=== PATIENT | male | born 1935 | race Caucasian/White ===

== ENCOUNTER 2018-04-15 22:59 | Emergency (ER) | payer OTHER, MEDICARE ==
[~2018-04-15] VITALS: Ht 180.3 cm; Wt 77.1 kg
--- NOTE | ~2018-04-15 | EKG ---
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
--- NOTE | ~2018-04-15 | EKG ---
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
[~2018-04-15 22:59] MED LIST: ACETAMINOPHEN-1 EAC1 PO; AMBEREN; ASPIRIN EC81 M1 PO; CIPROFLOXACIN500 M1 PO; FISH OIL 1,0001 EAC5 PO; FLOMAX; FLONASE 0.05%50 MCG NASAL; HYDROCODON-ACE1 EAC7 PO; LISINOPRIL10 MG PO; MECLIZINE HCL12.5 MG PO; METHOCARBAMOL500 M2 PO; MULTI-VITAMIN1 EAC5 PO; NORCO 5-325 TA1 EACH PO; PREDNISONE 20 M20 MG PO; SIMVASTATIN20 MG PO; SIMVASTATIN40 MG PO; TAMSULOSIN HCL0.4 MG PO; VITAMIN B-12500 MCG PO; VITAMIN C + RO500 MG PO; VITAMIN D-32000 UNIT PO; VITAMIN D400 UNI1
[2018-04-15 23:00] VITALS: BP 126/69
[2018-04-15 23:16] LABS: ABSOLUTE NEUTROPHILS 3.1 thou/uL (1.4-8.2); BASOPHILS 0.9 % (0.0-2.0); EOSINOPHILS 5.6 % (0.0-3.0); HEMOGLOBIN 14.7 gm/dL (14.0-18.0); MCH 33.5 pg (26.0-34.0); MCV 95.8 fL (80.0-100.0); PLATELET COUNT 205 thou/uL (150-400); POLYS 44.5 % (36.0-66.0); RBC 4.38 mil/uL (4.50-6.00); RDW 12.5 % (10.5-14.5); WBC 6.9 thou/uL (4.0-11.0)
[2018-04-15 23:25] LABS: ANION GAP 7 mmol/L (7-16); BUN 23 mg/dL (7-18); CALCIUM 9.3 mg/dL (8.5-10.1); CHLORIDE 106 mmol/L (98-107); CO2 29 mmol/L (21-32); CREATININE 1.3 mg/dL (0.7-1.3); GLUCOSE 111 mg/dL (74-106); POTASSIUM 4.1 mmol/L (3.5-5.1); SODIUM 142 mmol/L (136-145)
[2018-04-15 23:35] LABS: TROPONIN-I <0.06 ng/mL (<0.06)
[2018-04-16 03:10] VITALS: BP 144/54
== END 2018-04-16 03:11 | disposition home or self-care (01) ==
LOC: ER 22:59 → EROBS 04-16 01:08
PROVIDERS: Emergency Medicine
DX: R07.89 Other chest pain (principal); R11.0 Nausea; I10 Essential (primary) hypertension; E78.00 Pure hypercholesterolemia, unspecified; Z90.49 Acquired absence of other specified parts of digestive tract; Z85.038 Personal history of other malignant neoplasm of large intestine

== ENCOUNTER 2018-06-26 04:14 | Emergency (ER) | payer OTHER, MEDICARE ==
[~2018-06-26] VITALS: Ht 177.8 cm; Wt 72.6 kg
--- NOTE | ~2018-06-26 | EKG ---
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
[2018-06-26] MEDS ORDERED: COLESTIPOL HCL1 G1 PO (04:22)
[2018-06-26] MEDS ORDERED: TRAMADOL 50 MG50 MG PO (05:03)
[2018-06-26] MEDS ORDERED: NORFLEX100 MG PO (05:03)
[2018-06-26 06:36] LABS: CALCIUM 8.9 mg/dL (8.5-10.1); POTASSIUM 3.8 mmol/L (3.5-5.1)
[2018-06-26 06:45] LABS: TROPONIN-I 0.06 ng/mL (<0.06)
[2018-06-26 07:06] VITALS: BP 147/57
== END 2018-06-26 07:06 | disposition home or self-care (01) ==
LOC: ER 04:14
PROVIDERS: Emergency Medicine
DX: R20.2 Paresthesia of skin (principal); M43.6 Torticollis; R42 Dizziness and giddiness; I10 Essential (primary) hypertension; Z85.038 Personal history of other malignant neoplasm of large intestine; Z90.49 Acquired absence of other specified parts of digestive tract

== ENCOUNTER 2018-10-23 18:00 | Emergency (ER) | payer OTHER, MEDICARE ==
[~2018-10-23] VITALS: Ht 177.8 cm; Wt 72.6 kg
[~2018-10-23 18:00] MED LIST changes: +COLESTIPOL HCL1 G1 PO; +NORFLEX100 MG PO; +TRAMADOL 50 MG50 MG PO
[2018-10-23 19:50] VITALS: BP 156/78
--- NOTE | 2018-10-24 01:27 | EKG ---
[place] [address] [facility] [place] [address] ELECTROCARDIOGRAM REPORT Name: KIMBERLI SAINI [facility] #: [facility] [id number] ������������������ Admission: 10/23/18 ������������������ Attend Phys: Discharge: 10/23/18 ������������������ Date of : 34 Report #: [id number] ����������������������������������������������������������������� [id number] THIS REPORT FOR: //name// [facility] ED Test Date: 2018-10-23 Test Time: 18:56:02 Pat Name: KIMBERLI SAINI Department: Room: Gender: M Bin Filler: SARA : 1935 Requested By: Rambo Bear Order Number: [id number] MD: Yeyo Anand Measurements Intervals [place] Rate: 54 P: 51 SD: 142 QRS: 104 QRSD: 144 T: 16 QT: 442 QTc: 419 Interpretive Statements Sinus rhythm RBBB and LPFB Nonspecific ST-T wave changes Compared to ECG 06/26/2018 04:22:57 No significant changes Electronically Signed On 10-24-2018 1:26:54 CDT by Yeyo Anand [email or web address] ��������������������������������������������� <ELECTRONICALLY SIGNED> ���������������������������������������� By: Yeyo Anand MD ��������������������������������������������� 10/24/18 0126 55 55 Yeyo Anand MD /EPI
== END 2018-10-23 19:50 | disposition home or self-care (01) ==
LOC: ER 18:00
DX: S01.111A Laceration without foreign body of right eyelid and periocular area, initial encounter (principal); R42 Dizziness and giddiness; I10 Essential (primary) hypertension; Z85.038 Personal history of other malignant neoplasm of large intestine; W18.09XA Striking against other object with subsequent fall, initial encounter; Y93.89 Activity, other specified; Y92.89 Other specified places as the place of occurrence of the external cause; Y99.8 Other external cause status

== ENCOUNTER 2018-11-08 17:03 | Emergency (ER) | payer OTHER, MEDICARE ==
[~2018-11-08] VITALS: Ht 177.8 cm; Wt 72.6 kg
[2018-11-08 17:55] LABS: ABSOLUTE NEUTROPHILS 4.1 thou/uL (1.4-8.2); BASOPHILS 0.8 % (0.0-2.0); EOSINOPHILS 2.4 % (0.0-3.0); HEMATOCRIT 42.9 % (42.0-52.0); HEMOGLOBIN 15.2 gm/dL (14.0-18.0); LYMPHOCYTES 25.8 % (24.0-44.0); MCH 33.8 pg (26.0-34.0); MCHC 35.4 g/dL (28.0-37.0); MCV 95.4 fL (80.0-100.0); MONOCYTES 7.7 % (1.0-8.0); PLATELET COUNT 236 thou/uL (150-400); POLYS 63.3 % (36.0-66.0); RDW 12.7 % (10.5-14.5); WBC 6.4 thou/uL (4.0-11.0)
[2018-11-08 18:06] LABS: CALCIUM 9.2 mg/dL (8.5-10.1); CREATININE 1.1 mg/dL (0.7-1.3)
[2018-11-08 18:28] LABS: MAGNESIUM 1.9 mg/dL (1.8-2.4); TROPONIN-I <0.06 ng/mL (<0.06)
[2018-11-08 19:28] LABS: URINE BILIRUBIN NEGATIVE (Negative); URINE BLOOD NEGATIVE (Negative); URINE CLARITY CLEAR; URINE COLOR YELLOW; URINE GLUCOSE-RANDOM* NEGATIVE (Negative); URINE KETONES NEGATIVE (Negative); URINE LEUKOCYTES-REFLEX NEGATIVE (Negative); URINE NITRITE-REFLEX NEGATIVE (Negative); URINE PROTEIN (DIPSTICK) NEGATIVE (Negative); URINE UROBILINOGEN 0.2 E.U./dl (0.2-1.0)
[2018-11-08 21:00] VITALS: BP 162/67
--- NOTE | 2018-11-09 07:55 | EKG ---
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 : 1935 Requested By: Chris Oviedo Order Number: [id number] MD: Liang Whitley Measurements Intervals [place] Rate: 60 P: 48 [place]: 143 QRS: 130 QRSD: 138 T: 12 QT: 426 QTc: 426 Interpretive Statements Sinus rhythm RBBB and LPFB Compared to ECG 10/23/2018 18:56:02 No significant changes Electronically Signed On 11-09-2018 7:55:35 CDT by Liang Whitley [email or web address] ��������������������������������������������� <ELECTRONICALLY SIGNED> ���������������������������������������� By: Liang Whitley MD, [facility] ��������������������������������������������� 11/09/18 0755 D: 04/1709 09 Liang Whitley MD, FACC /EPI
== END 2018-11-08 21:00 | disposition home or self-care (01) ==
LOC: ER 17:03
PROVIDERS: Emergency Medicine
DX: R42 Dizziness and giddiness (principal); R13.10 Dysphagia, unspecified; R29.6 Repeated falls; R26.89 Other abnormalities of gait and mobility; I10 Essential (primary) hypertension; Z90.49 Acquired absence of other specified parts of digestive tract; Z85.038 Personal history of other malignant neoplasm of large intestine

== ENCOUNTER → 2018-11-14 | Outpatient (CLI) | payer OTHER, MEDICARE | LOC: MRI 14:45 | DX: G31.9 Degenerative disease of nervous system, unspecified (principal) ==

== ENCOUNTER 2019-09-29 14:50 | Emergency (ER) | payer OTHER, MEDICARE ==
[~2019-09-29] VITALS: Ht 177.8 cm; Wt 72.6 kg
[2019-09-29] MEDS ORDERED: TYLENOL325 M1 PO (17:46)
[2019-09-29] MEDS ORDERED: ULTRAM 50MG TAB50 MG PO (17:46)
[2019-09-29] MEDS ORDERED: SENNA-DOCUSATE1 EAC1 PO (17:46)
[2019-09-29 23:40] VITALS: BP 152/74
== END 2019-09-29 23:40 | disposition home or self-care (01) ==
LOC: ER 14:50
DX: S22.080A Wedge compression fracture of T11-T12 vertebra, initial encounter for closed fracture (principal); K59.00 Constipation, unspecified; I10 Essential (primary) hypertension; Z79.899 Other long term (current) drug therapy; Z79.82 Long term (current) use of aspirin; W01.0XXA Fall on same level from slipping, tripping and stumbling without subsequent striking against object, initial encounter; Y93.89 Activity, other specified; Y92.89 Other specified places as the place of occurrence of the external cause; Y99.8 Other external cause status

== ENCOUNTER 2019-10-03 21:22 | Inpatient (IN) | payer OTHER, MEDICARE ==
[~2019-10-03] VITALS: Ht 177.8 cm; Wt 73.3 kg
[~2019-10-03 21:22] MED LIST changes: +SENNA-DOCUSATE1 EAC1 PO; +TYLENOL325 M1 PO; +ULTRAM 50MG TAB50 MG PO
[2019-10-03 21:23] VITALS: BP 166/68
[2019-10-03 21:58] LABS: HEMATOCRIT 46.2 % (42.0-52.0); HEMOGLOBIN 15.5 gm/dL (14.0-18.0); MCH 32.5 pg (26.0-34.0); MCHC 33.5 g/dL (28.0-37.0); MCV 97.1 fL (80.0-100.0); RBC 4.76 mil/uL (4.50-6.00); RDW 12.6 % (10.5-14.5); WBC 6.5 thou/uL (4.0-11.0)
[2019-10-03 22:06] LABS: ANION GAP 7 mmol/L (7-16); BUN 23 mg/dL (7-18); CHLORIDE 104 mmol/L (98-107); CO2 30 mmol/L (21-32); CREATININE 1.1 mg/dL (0.7-1.3); GLUCOSE 130 mg/dL (74-106); POTASSIUM 3.7 mmol/L (3.5-5.1); SODIUM 141 mmol/L (136-145)
[2019-10-03 22:17] LABS: ALBUMIN 3.9 g/dL (3.4-5.0); SGOT 25 U/L (15-37); SGPT 27 U/L (30-65); TOTAL BILIRUBIN 0.8 mg/dL (<0.1-1.0); TOTAL PROTEIN 7.4 g/dL (6.4-8.2); TROPONIN-I <0.06 ng/mL (<0.06)
[2019-10-03 22:41] LABS: URINE BILIRUBIN NEGATIVE (Negative); URINE BLOOD TRACE (Negative); URINE CLARITY CLEAR; URINE COLOR YELLOW; URINE GLUCOSE-RANDOM* NEGATIVE (Negative); URINE KETONES NEGATIVE (Negative); URINE LEUKOCYTES-REFLEX NEGATIVE (Negative); URINE NITRITE-REFLEX NEGATIVE (Negative); URINE PROTEIN (DIPSTICK) NEGATIVE (Negative); URINE SPECIFIC GRAVITY >= 1.030 (1.005-1.035); URINE UROBILINOGEN 0.2 E.U./dl (0.2-1.0)
[2019-10-04] VITALS (8 sets, daily range): BP systolic 128–172; BP diastolic 63–85
--- NOTE | 2019-10-04 06:27 | NUR ---
PT ARRIVED TO UNIT APPROX 0200, ADMISSION AND ASSESSMENT COMPLETED, CONSENTS SIGNED. PT IS A&Ox3 BUT FORGETFUL AND POOR HISTORIAN, ESPECIALLY REGARDING MEDICATIONS. DENIES PAIN, NAUSEA, OR SOB. C/O DIZZINESS THAT HAS BEEN WORSENING/LASTING LONGER OVER THE LAST SEVERAL MONTHS, LEADING TO MULTIPLE FALLS AT HOME; FALL ON 09/29/19 LED TO T12 COMPRESSION FRACTURE WHICH CAUSES INTERMIT. PAIN. PT DENIES VISION CHANGES OR NAUSEA W/ THE DIZZINESS, WHICH IS A HORIZONTAL SPINNING SENSATION LIKE A VMIPA-WI-BGSOF. UP FREQUENTLY TO URINATE, ONLY 100-150 ML AT A TIME, BLADDER SCAN SHOWED LESS THAN 150 ML; PT UNSURE WHEN HE LAST TOOK HIS FLOMAX. PT C/O BEING UNABLE TO SLEEP THIS AM, AND BACK STARTING TO HURT, GAVE DOSE OF TRAMADOL. NO OTHER CONCERNS, WILL CONTINUE TO MONITOR.
--- NOTE | 2019-10-04 08:16 | EKG ---
[facility] [place] [address] ELECTROCARDIOGRAM REPORT Name: KIMBERLI SAINI Room #: 350-P ADM IN M.R.#: [id number] Admission: 10/04/19 Attend Phys: Dov Johnson MD Discharge: Date of : 34 Report #: [id number] THIS REPORT FOR: cc: Dov Johnson MD, Neal A. MD Couchonnal, Luis F. MD ~ THIS REPORT FOR: //name// [facility] ED Test Date: 2019-10-03 Test Time: 21:30:11 Pat Name: KIMBERLI SAINI Department: Room: 350 Gender: M Behavioral Scientist: DAMASO : 1935 Requested By: Beronica Schuster Order Number: [id number] MD: Shane Kaba Measurements Intervals [place] Rate: 65 P: 112 [place]: 160 QRS: 127 QRSD: 138 T: 1 QT: 396 QTc: 412 Interpretive Statements Sinus rhythm RBBB and LPFB Compared to ECG 11/08/2018 17:10:36 No significant changes Electronically Signed On 10-04-2019 8:15:14 CDT by Shane Kaba [email or web address] <ELECTRONICALLY SIGNED> By: Shane Kaba MD 10/04/19814 29 29 Shane Kaba MD /EPI
--- NOTE | 2019-10-04 14:59 | NUR ---
Case opened to follow for dc planning. Cm role introduced to the pt and his at bedside. The pt is a&ox3 but forgetful. Pt's able to clarify his answers. She notes that he has trouble finding his words and is wondering about ST eval. She states that his dizziness is a new problem. He fell a few weeks ago and then finally came to the ER last Wednesday d/t back pain. Pt noted to have T12 comp fx. They live in their own home and have two steps in from the front door and/or the garage. He normally uses a cane and is supervision with adl's;however he has been using rwalker the past few days with increasing dizziness. His drives and can assist with supervision and adl's at home as needed. They are familiar with hh from a surgery 6+ years ago but have only had some outpt therapy since that time. They are not familiar with SNF or acute rehab. MRI results are pending this afternoon. Will ask for PT/OT/ST and rehab consult. Support provided. Will follow along for possible hh/snf or rehab referrals. Pt and his will need f/u discussion regarding options if SNF/rehab or hh are recommended.
--- NOTE | 2019-10-04 18:50 | NUR ---
PT A&OX3. IV INTACT IN L WRIST. AMBULATES WITH ASSIST X WALKER/ GAIT BELT. MRI OF HEAD COMPLETED AND CALLED TO DR. TORRES. PT /OT HAS BEEN ORDERED. PT HAS HAD DIZZINESS TODAY. WILL CONT POC.
[2019-10-05] VITALS (8 sets, daily range): BP systolic 109–163; BP diastolic 62–84
--- NOTE | 2019-10-05 06:17 | NUR ---
ASSUMED CARE AT 1900. SPOKE WITH FAMILY REGARDING CONCERNS FOR PATIENT AT DISCHARGE; THEY REPORT PT HAS BEEN FALLING AT LEAST ONCE A DAY AND HIS CAN'T PICK HIM UP OFF THE FLOOR; PT WILL DENY NEED FOR HELP AND WON'T ASK FOR ASSISTANCE. FAMILY WANTS THE PT TO AT LEAST HAVE HOME HEALTH COME IN AND PROVIDE ASSISTANCE AND PHYSICAL THERAPY. PT MORE ALERT AND CALLING APPROPRIATELY AT START OF SHIFT BUT GRADUALLY MORE RESTLESS, CONFUSED, AND IMPULSIVE THROUGHOUT THE NIGHT. CONTINUED TO NEED TO URINATE FREQUENTLY IN VERY SMALL AMOUNTS; BLADDER SCAN SHOWED RESIDUALS OF LESS THAN 50 ML. GAVE VALIUM ONCE TO HELP WITH DIZZINESS AND TYLENOL-3 ONCE FOR BACK PAIN. NO OTHER CONCERNS, WILL CONTINUE TO MONITOR.
--- NOTE | 2019-10-05 14:24 | NUR ---
Received consult for discharge planning. EULOGIO reviewed chart and spoke with nursing and attending physician. [facility] consult ordered. SW discussed with [facility] cardiac rehab nurse, who states they are able to accept pt tomorrow. Neuro consult also ordered. EULOGIO met with pt and at bedside. Provided update regarding [facility] acceptance. Pt and are agreeable with plan. [facility] cardiac rehab nurse to meet with pt and this afternoon per pt's request. EULOGIO updated attending physician. EULOGIO is following to assist as needed with discharge planning.
--- NOTE | 2019-10-05 18:30 | NUR ---
TRANSFERED TO [facility] VIA ALL BELONGINGS WITH PT. PT FOR REHAB TOMMORROW.
[2019-10-05 18:32] LABS: TSH 1.076 uIU/mL (0.358-3.740)
[2019-10-05 19:07] LABS: FOLIC ACID 29.3 ng/mL (8.6-58.9)
--- NOTE | 2019-10-06 03:41 | NUR ---
Progress Pt alert, oriented to self able to state name and reverbalized poc. Stated he was going to be discharged to [address] [place] [address] for rehab. Still reports dizziness at times but stated the meclizine helps. Denied need for any meclizine tonight. Voiding per urinal. Able to reposition self in bed, skin c/d/i no areas of redness or breakdown noted. Has a T-12 compression fracture and rating pain a 5 to 8 took tramadol with effect pt slept after. Plan is to discharge to acute rehab today.
[2019-10-06 07:33] VITALS: BP 151/84
[2019-10-06 10:55] VITALS: BP 116/62; BP 150/94
[2019-10-06 10:56] VITALS: BP 172/91
--- NOTE | 2019-10-06 14:19 | NUR ---
CARE TEAM INDICATED THAT PT IS MEDICALLY STABLE TO DISCHARGE TO [facility] ACUTE INPATIENT REHAB THIS DAY. CM MET WITH PT AND SPOUSE AT BEDSIDE. THEY ARE AWARE AND AGREEABLE. REPORT TO BE CALLED TO . NO OTHER CM INTERVENTION INDICATED. CASE CLOSED.
[2019-10-06 14:41] VITALS: BP 123/59
--- NOTE | 2019-10-06 16:33 | NUR ---
Assumed pt care this am, a and o x 2. VS stable. Pt is a x 1 assists with a gaitbelt and walker, orthostatic hypotension vs done results read to Dr. Spencer. New orders given for medication and hunter hose. POC followed no signs or verbalizations of distress noted, denied pain. REport given to 5 N nurse pt is to move to 514
== END 2019-10-06 16:50 | DRG 69 ==
LOC: ER 21:22 → 4W 10-04 00:32 → EROBS 10-04 00:32 → 3W 10-04 00:32 → 4W 10-05 18:14
PROVIDERS: Psychiatry & Neurology Neurology; Student in an Organized Health Care Education/Training Program; ADMIT Family Medicine
DX: G45.9 Transient cerebral ischemic attack, unspecified (principal); G91.2 (Idiopathic) normal pressure hydrocephalus; I10 Essential (primary) hypertension; R42 Dizziness and giddiness; R32 Unspecified urinary incontinence; R25.1 Tremor, unspecified; R29.6 Repeated falls; I95.1 Orthostatic hypotension; Z79.82 Long term (current) use of aspirin; Z79.891 Long term (current) use of opiate analgesic; Z79.899 Other long term (current) drug therapy; Z90.49 Acquired absence of other specified parts of digestive tract
CPT/HCPCS: 10047; 10879

== ENCOUNTER 2019-10-05 15:20 | Inpatient (IN) | payer OTHER, MEDICARE ==
[~2019-10-05] VITALS: Ht 177.8 cm; Wt 70.1 kg
[2019-10-06 17:23] VITALS: BP 138/77
--- NOTE | 2019-10-06 19:06 | NUR ---
PT ARRIVED AT 1700 FROM 4W. VITALS STABLE. C/O MILD LOWER BACK PAIN. C/O DIZZINESS WHEN STANDING/ WALKING. WEAKNESS NOTED WITH TRANSFERS AND AMBULATION, PT UNSTEADY. SKIN REMAINS DRY AND INTACT. Q1H VISUAL CHECKS. CALL LIGHT WITHIN REACH. FALL PRECAUTIONS IN PLACE
[2019-10-06 20:21] VITALS: BP 131/63
--- NOTE | 2019-10-07 03:25 | NUR ---
PT ASSESSMENT COMPLETED AND VSS. MEDS GIVEN ORDERED AND WELL TOLERATED. FALL PRECAUTIONS IN PLACE. PT DIZZY WHEN STANDING AND VERY UNSTEADY. VOIDING WITH ASST X 1 IN URINAL. PT NEEDS LOTS OF ASSISTANCE WITH VOIDING. ASST WITH REPOSITION FOR COMFORT. SLEEPING WELL. WILL CONTINUE TO MONITOR FREQUENTLY. PT VERY CONFUSED AND INPULSIVE AT HS.
[2019-10-07 06:11] LABS: HEMATOCRIT 40.3 % (42.0-52.0); HEMOGLOBIN 13.9 gm/dL (14.0-18.0); MCHC 34.5 g/dL (28.0-37.0); MCV 95.8 fL (80.0-100.0); RBC 4.2 mil/uL (4.50-6.00); RDW 12.7 % (10.5-14.5)
[2019-10-07 06:23] LABS: CALCIUM 8.7 mg/dL (8.5-10.1)
[2019-10-07 08:00] VITALS: BP 134/76
[2019-10-07 19:45] VITALS: BP 147/75
--- NOTE | 2019-10-07 20:13 | NUR ---
ASSUMED CARE OF PT AT 0700. PT IS A&OX2, CONFUSED, IMPULSIVE, VITAL SIGNS ARE STABLE. DENIES PAIN AND PARTICIPATED IN SCHEDULED THERAPIES. CALLS APPROPRIATLEY FOR ASSISTANCE, FALL PRECAUTIONS IN PLACE. NURSING WILL CONTINUE TO MONITOR.
--- NOTE | 2019-10-08 00:46 | NUR ---
PT ASSESSMENT COMPLETED AND VSS. MEDS GIVEN ORDERED AND WELL TOLERATED. FALL PRECAUTIONS IN PLACE. VOIDING MODERATE AMOUNT OF YELLOW URINE IN URINAL WITH ASST. IMPULSIVE AT TIMES. CONFUSED. SLEEPING. WILL CONTINIUE TO MONITOR FREQUENTLY.
[2019-10-08 07:56] VITALS: BP 170/99
--- NOTE | 2019-10-08 20:38 | NUR ---
ASSUMED CARE OF PT AT 0700. PT IS A&OX2-3 AND VITAL SIGNS ARE STABLE. PT DENIES PAIN AND PARTICIPATED IN SCHEDULED THERAPIES AND ADL'S WITH NURSING. PT CAN BE IMPULSIVE, BUT MADE FEW ATTEMPTS TO AMBULATE WITHOUT STAFF. FALL PRECAUITONS IN PLACE AND NURSING WILL CONTINUE TO MONITOR.
[2019-10-08 22:46] VITALS: BP 130/76
--- NOTE | 2019-10-09 02:41 | NUR ---
ASSUMED PT CARE AROUND 1930. AXOX2. VSS. NO S/S ACUTE DISTRESS NOTED OR REPORTED AT THIS TIME. WILL CONT TO MONITOR FOR ANY CHANGES IN CONDITION.
[2019-10-09 08:00] VITALS: BP 141/77
--- NOTE | 2019-10-09 08:59 | NUR ---
Nutrition: Assessed due to consult received for poor intake. Admit for rehab w/ gait instability w/ recurrent falls, dizziness, orthostatic hypotension. Recent T12 compression fracture with other hx HTN, remote colon CA (1984). Visited in dining area. Pt reports a good appetite with no nutrition concerns. Completed entire entree this a.m. and almost all of [place]ine[place] muffin. On a heart healthy diet. Meal average= 83% per last 10 recorded meals. Completing 75-100% of most meals 10/04 - 10/07. Last BM 10/05, but has PRN bowel meds available. On MVI w/ minerals, B12, and vitamin D3. Pt's wt is incredibly stable as pt reports wt of 160# consistently from 06/2018 - 09/2019 per EMR. Weighed 160.9# on 10/03, still at 160# on 10/08. Reminded pt on importance of prioritizing entrees/other protein first, saving starches, etc for last. At healthy wt, no nutrition needs at this time. Low risk.
--- NOTE | 2019-10-09 12:59 | NUR ---
chart review, pt up in recliner chair. a & o x 3, pleasant and forgetful. intro to cm, dcp and team meeting. pt preferrs going by [facility], he reported "live with independent prior to, had some falls. manage own medication. drives. live in house with 2 steps to enter. have a cane and 4ww. had hh in past but cant remember who it was with"/[facility]. cm asked pt to verify who his dr is, took cleopatra long time and with giving him hint of letter E, he stated " beto"/cleopatra. " this is one of reason i need the rehab"/pt. will cont following as needed for dc needs.
--- NOTE | 2019-10-09 19:00 | NUR ---
RECEIVED REPORT AT NOON, AND PT UP TO DINING ROOM FOR LUNCH, CHATTING WITH OTHER PATIENTS. AFFECT IS BRIGHT AND PT REMAINS FORGETFUL AND IMPULSIVE. NOTED THAT PT REQUIRES REMINDERS TO RISE SLOWLY DUR TO HYPOTENSION, AND ORDERED THIGH HIGH CHRIS HOSE, BUT THESE HAVE NOT ARRIVED YET. PER MD, ABD BINDER IS NOT INDICATED, THIS PREDISPOSES PT TO PNEUMONIA FROM RESTRICTION OF LOWER LUNGS. THIS WAS PASSED ON IN REPORT TO THE ONCOMING SHIFT. CHRIS HOSE ARE AT BEDSIDE FOR DONNING TOMORROW AFTER ADL'S. PT CONTINENT TO BR X 2 THIS AFTERNOON, AND ALARMS REMAIN ON DUE TO IMPULSIVITY.
[2019-10-09 20:00] VITALS: BP 143/72
--- NOTE | 2019-10-10 00:06 | NUR ---
PT ALERT AND ORIENTED X 2. AMB TO BR WITH WALKER AND ASSIST X 1 WITH UNSTEADY GAIT. PT IMPULSIVE, HAS SET OFF CHAIR AND BED ALARM NUMEROUS TIMES TONIGHT. NO BM SINCE 10/05. COLACE AND SENNA GIVEN AT HS. PT REFUSED FISH OIL AT HS. PT DENIES PAIN OR DISCOMFORT. BED ALARM ON FOR SAFETY. PT CHECKED ON MORE FREQUENTLY THAN HOURLY ROUNDS. PT EASILY VISIBLE FROM NURSES STATION.
[2019-10-10 08:15] VITALS: BP 143/89
--- NOTE | 2019-10-10 11:28 | NUR ---
ASSUMED CARE AT 0700, A&O X 2, CONFUSED AND IMPULSIVE AT TIMES. VSS O2 ON RA. MIN ASSIST X 1 USING WALKER. THIGH HIGH CHRIS HOSE IN PLACE. MEDS WHOLE IN WATER. INCONTINENT OF B&B AT TIMES. LAST BM 10/06/19, ON KISHAN MIRALAX AND COLACE, ALSO GIVEN PRN SENNA. TOLERATED THERAPY, RESTING IN RECLINER, CALL LIGHT WITHIN REACH, WILL CONTINUE TO MONITOR PER POC.
--- NOTE | 2019-10-10 12:53 | NUR ---
team meeting, recommendation: dc with hh ( pt, ot, st and nursing) vs outpt therapy (pt, ot). to assist with bills and pills.
[2019-10-10 19:53] VITALS: BP 148/83
--- NOTE | 2019-10-11 01:32 | NUR ---
PT ASSESSMENT COMPLETED AND VSS. MEDS GIVEN ORDERED AND WELL TOLERATED. FALL PRECAUTIONS IN PLACE. UP TO THE BATHROOM WITH ASST/GAIT/WALKER. UNSTEADY AT TIMES. PT VERY IMPULSIVE AND CONFUSED AT HS. SLEEPING WELL AT THIS TIME. WILL CONTINUE TO MONITOR FREQUENTLY.
[2019-10-11 08:14] VITALS: BP 130/57
[2019-10-11 08:15] VITALS: BP 151/81
[2019-10-11 08:17] VITALS: BP 155/78
--- NOTE | 2019-10-11 11:52 | NUR ---
ASSUMED CARE OF PT AT 0700. REPORTS SLEPT GOOD LAST NIGHT. PT IS A&OX2, CONFUSED, HAS HX OF IMPULSIVE, BUT FOLLOW COMMANDS AND CALLS OUT INSTRUCTED. VITAL SIGNS ARE STABLE ON RA. ORTHOSTATIC TAKEN. LYING 130/57, SITTING 151/81, STANDING 155/78. DENIES PAIN AND PARTICIPATED IN SCHEDULED THERAPIES. OFFERED SUPPORTIVE CARE. ENCOURAGE PT TO VOICE HIS NEEDS. MORNING MEDS GIVEN. PT REFUSES TO TAKE FISH OIL SAID IT CAUSES HIS DIARRHEA. NOTIFIED FUENTES TO D/C FISH OIL. ASSISTED TO BATHROOM. UP WITH A WALKER. HAD SMALL SOFT BM TODAY. CONTINUE TO BE ON COLACE AND MIRALAX DAILY. CALLS APPROPRIATLEY FOR ASSISTANCE, FALL PRECAUTIONS IN PLACE. NURSING WILL CONTINUE TO MONITOR.
[2019-10-11 20:00] VITALS: BP 132/59
[2019-10-12 08:00] VITALS: BP 134/75
--- NOTE | 2019-10-12 14:32 | NUR ---
ASSUMED CARES AT 0700. PT AWAKE, ORIENTED TO PERSON AND SITUATION ONLY. FORGETFUL. DENIES PAIN. DENIES DIZZINESS. VITALS REMAIN STABLE. PT PARTICIPATED IN ALL THERAPIES AND TOLERATED WELL. UP WITH 1 MIN ASSIST, GB AND WALKER. FREQ VISUAL CHECKS. CALL LIGHT WITHIN REACH. FALL PRECAUTIONS IN PLACE
[2019-10-12 20:00] VITALS: BP 145/75
--- NOTE | 2019-10-13 02:35 | NUR ---
PATIENT AOX2 CONFUSED AND FORGETFUL. PATIENT COMPLAINS OF GETTING DIZZY WHEN GETTING OUT OF THE BED. PATIENT RE EDUCATED TO GET OUT OF THE BED SLOWLY AND STAND UP FOR A FEW SECONDS BEFORE WALKING TO THE BATHROOM. PATIENT AMBULATES SLOWLY WITH A WALKER WITH UNSTEADY GAITS. PATIENT NEEDS NEEDS MAXIMUM WITH ADL, BED MOBILTY, TRANSFER AND TOILETING. CALL LIGHT AND PERSONAL ITEM WITHIN REACH. PATIENT IN BED ASLEEP AT THIS TIME BREATHING REGULAR AND UNLABOURED.
[2019-10-13 08:00] VITALS: BP 134/86
--- NOTE | 2019-10-13 12:44 | NUR ---
ASSUMED CARE AT 0700, PT A&O X 2 CAN BE IMPULSIVE AND CONFUSED AT TIMES, NO ACUTE DISTRESS NOTED. VSS O2 ON RA. PT DENIES ANY PAIN OR DISCOMFORT, TOLERATES MEDS WHOLE WITH WATER. MIN ASSIST X 1 WITH TRANSFERS USING WALKER. INCONTINENT OF B&B AT TIMES, LAS T BM 10/12/19. THIGH HIGH CHRIS HOSE IN PLACE, PT SITTING IN RECLINER, CALL LIGHT WITHIN REACH, WILL CONTINUE TO MONITOR PER POC.
[2019-10-13 19:09] VITALS: BP 149/80
--- NOTE | 2019-10-14 06:43 | NUR ---
PROGRESS PT A/O X4. UP WITH SBA GAIT SLIGHTLY UNSTEADY PT IS NOT USED TO USING A WALKER. STILL NEEDS CONTACT GUARD TO KEEP BALANCE. WAS UP TOLIETING EVERY FEW HOURS LAST NIGHT SO STILL FEELS TIRED THIS AM. SKIN C/D/I . STILL IMPULSIVE GETS UP AND SETS OFF BEDALARM BUT WAITS FOR YOU TO COME IN AND RESET IT THEN WILL ALLOW YOU TO PLACE THE GAIT BELT AND GIVE HIM WALKER. CONTINUETO GET UP
[2019-10-14 08:00] VITALS: BP 138/77
--- NOTE | 2019-10-14 15:24 | NUR ---
ASSUMED CARES AT 0700. PT AWAKE, ORIENTED TO PERSON AND PLACE ONLY. DENIES PAIN. VITALS REMAIN STABLE. PT UP WITH 1 MIN ASSIST, GB AND WALKER AND TOLERATED WELL. CALLS APPROPRIATELY IF NEEDING TO USE THE BATHROOM, NO IMPULSIVENESS NOTED. FREQ. VISUAL CHECKS. CALL LIGHT WITHIN REACH. FALL PRECATIONS IN PLACE
[2019-10-14 19:18] VITALS: BP 139/80
--- NOTE | 2019-10-15 02:37 | NUR ---
assumed care at approx 1900 evening 10/13. pt sitting up in recliner at change of shift resting and watching tv. pt pleasant and cooperative yet forgetful. pt up to bathroom with 1 assist standby. pt took hs meds with water tolerating well. pt appears to be sleeping soundly with hourly rounding checks. bed alarm on and call light in reach. will continue to monitor.
[2019-10-15 07:37] VITALS: BP 135/74
--- NOTE | 2019-10-15 19:25 | NUR ---
ASSUMED CARE OF PT AT 0700. PT IS A&OX3, FORGETFUL AND VITAL SIGNS ARE STABLE. DENIES PAIN AND PARTICIPATED IN SCHEDULED THERAPIES AND ADLS. HR REGULAR, LUNG SOUNDS CLEAR IN ALL LOBES, BOWEL SOUNDS CLEAR IN ALL LOBES. FALL PRECAUTIONS IN PLACE AND NURSING WILL CONTINUE TO MONITOR.
[2019-10-15 19:31] VITALS: BP 143/45
--- NOTE | 2019-10-15 23:44 | NUR ---
PT ASSESSMENT COMPLETED AND VSS. MEDS GIVEN ORDERED AND WELL TOLERATED. FALL PRECAUTIONS IN PLACE. UP TO THE BATHROOM WITH ASST/GAIT/WALKER. UNSTEADY. PT IMPULSIVE AND CONFUSED AT TIMES. VOIDING MODERATE AMOUNT OF DARK YELLOW URINE PER URINAL. SLEEPING ON AND OFF. WILL CONTINUE TO MONITOR FREQUENTLY.
[2019-10-15 23:47] VITALS: BP 137/55
[2019-10-16 05:20] LABS: HEMATOCRIT 45.2 % (42.0-52.0); HEMOGLOBIN 15.5 gm/dL (14.0-18.0); MCH 33.3 pg (26.0-34.0); MCHC 34.3 g/dL (28.0-37.0); MCV 96.9 fL (80.0-100.0); RBC 4.67 mil/uL (4.50-6.00); RDW 12.7 % (10.5-14.5); WBC 6.8 thou/uL (4.0-11.0)
[2019-10-16 05:29] LABS: CALCIUM 9.3 mg/dL (8.5-10.1); CREATININE 1.1 mg/dL (0.7-1.3); MAGNESIUM 2.1 mg/dL (1.8-2.4); POTASSIUM 3.8 mmol/L (3.5-5.1)
[2019-10-16 08:00] VITALS: BP 114/84
--- NOTE | 2019-10-16 12:11 | NUR ---
Nutrition follow up: Pt continues on a heart healthy diet, eating almost 100% of all meals. New meal average = 97% per the last 18 recorded meals 10/09 - 10/14. PO intake actually even higher compared to last week. Still noted to be confused, impulsive at times. Not seen this date. Recent BM 10/14. Down slightly from 160# earlier in September to 154#, but stable x 1 week as pt weighed 154# on 10/09, now 154.6# on 10/14. BMI very healthy at 22.2 kg/m2. Given 100% meal intakes consistently, no new nutrition recommendations or intervention needs at this time. Anticipated discharge in a few days on 10/18. Low risk.
--- NOTE | 2019-10-16 14:03 | NUR ---
ASSUMED CARE AT 0700, PT A&O TO PERSON, CONFUSED AND IMPULSIVE AT TIMES. VSS O2 ON RA. PT DENIES ANY PAIN OR DISCOMFORT DURING SHIFT. STAND BY ASSIST USING GAIT BELT AND WALKER. CONTINENT OF B&B, BM X 2 TODAY USES BR. SITTING IN RECLINER, CALL LIGHT WITHIN REACH, WILL CONTINUE TO MONITOR PER POC.
--- NOTE | 2019-10-16 20:17 | NUR ---
PT IS A&O TO SELF, CITY, & YEAR. IS UNABLE TO TELL ME THE MONTH OR CURRENT PRESDIDENT, BUT AGREED & STATED "I WISH HE WASN'T" WHEN ORIENTED. PT IS CONFUSED, FORGETFUL, & IMPULSIVE. IS NEAR THE NURSE STATION. FREQUENT CHECKS. TOILETING WITH HOURLY ROUNDING. FALL PRECAUTIONS IMPLEMENTED & CONTINUED THIS SHIFT. PT IS CURRENTLY UP IN RECLINER. REFUSES TO GET IN BED & PUT ON PJ'S. THIS NURSE IN PT ROOM AT THIS TIME. PT IS STABLE. DENIES PAIN. IS CURRENTLY WATCHING THE NEWS. CALL LIGHT WITHIN REACH. WILL CONTINUE TO MONITOR. LABS & VITALS REVIEWED.
[2019-10-17 08:10] VITALS: BP 143/72
--- NOTE | 2019-10-17 13:42 | NUR ---
team meeting, recommendation: impulsive with getting up with out assistance. family to assist with pills and bills. dc 26th (pt, ot, st and nursing. 24h supervision, needs to use fww instead of 4ww.
--- NOTE | 2019-10-17 15:36 | H ---
[facility] [place] [address] HISTORY AND PHYSICAL Name: KIMBERLI SAINI Room #: 514-P ADM IN M.R.#: [id number] Admission: 10/06/19 Attend Phys: Patrick Gonzalez MD Discharge: Date of : 34 Report #: [id number] THIS REPORT FOR: cc: Dov Johnson MD,Dov Gonzalez,Patrick Ospina MD ~ CC: Patrick Johnson DATE OF SERVICE: 10/06/2019 HISTORY OF PRESENT ILLNESS: The patient was seen later on 10/06/2019. The patient is an 84-year-old male who was originally admitted to [facility] on 10/04/2019 with dizziness and falls. He has had multiple falls within the past 6 months "more than I could count." He usually related that to losing balance. Typically, apparently falls forward. Denied any loss of consciousness with the falls, 4 previous head injury. The patient was evaluated by Neurology with assessment of orthostatic hypotension, dizziness as well as NPH. The recommendations were for thigh high CHRIS hose, midodrine and inpatient rehabilitation. Follow up with the orthostatic blood pressures. The patient has now been admitted for acute in-hospital inpatient rehabilitation. Of note that the Neurology consult indicated that the MRI films were reviewed and suggest ventriculomegaly, disproportionate atrophy. If not better with lightheadedness, we may consider large volume diagnostic and therapeutic lumbar puncture. PRIOR MEDICAL HISTORY: Includes hypertension, colon cancer 1984, hernia repair x 3, carpal tunnel syndrome, laparoscopic cholecystectomy in 2012, retention, T12 compression fracture in 09/2019. MEDICATIONS: Please see the full medication listing. ALLERGIES: No known drug allergies. HABITS: No history of tobacco abuse. No history of alcohol abuse. SOCIAL HISTORY: Premorbidly living at home with his . Used a four-wheeled walker also has a cane. He was independent with ADLs. Two steps in a ranch style home. REVIEW OF SYSTEMS: No current complaints of chest pain, shortness of breath or abdominal discomfort. PHYSICAL EXAMINATION: GENERAL: An 84-year-old white male in no obvious distress. The patient was seen yesterday, 10/06/2019. The patient was alert. He would follow basic [address] [address] HISTORY AND PHYSICAL Name: KIMBERLI SAINI MADDI Room #: 514-P [facility] IN M.R.#: [id number] Admission: 10/06/19 Attend Phys: Patrick Gonzalez MD Discharge: Date of : 34 Report #: [id number] step commands. VITAL SIGNS: Temperature 36.3, pulse 77, respirations 16, blood pressure 138/77. HEENT: Facies appeared symmetric. Appeared to be benign. EOMs appeared to be full. No obvious nystagmus. CHEST: Sounded clear to auscultation. CARDIOVASCULAR: Regular rate and rhythm. ABDOMEN: Bowel sounds positive. NEUROLOGIC: He does have the ability to follow basic 1 step commands, but has decreased short term memory. EXTREMITIES: Upper extremities without obvious dysmetria. He need some reminders to cure this, but is able to do [id number]. Lower extremities, no focal calf swelling. Tone appeared to be intact. Upper and lower extremities strength is probably a grade 4- to 3+/5. Functionally, he has been mod assist to ambulate a short distance with a walker prior to admission to rehabilitation. He has been noted to have moderate cognitive deficits with severe memory for speech therapy prior to admission. ASSESSMENT: An 84-year-old male with the following problem list: 1. Gait instability with recurrent falls. 2. Orthostatic hypotension. 3. Dizziness. 4. Normal pressure hydrocephalus. 5. History of recurrent falls. 6. Recent T12 vertebral fracture. PLAN: The patient has been admitted for acute in-hospital inpatient rehabilitation. From a postadmission physician evaluation perspective, there are no relevant changes since the preadmission screening. Please see the above review of prior and current medical and functional conditions and comorbidities. Please see the previous current functional status. The risk of complications, the patient has multiple medical comorbidities as noted above. Initial plan of care involves the interdisciplinary acute inpatient rehabilitation program. Measurable functional goals would be for the patient to become modified independent with transfers, mobility, ADLs as well as improvement in cognition, so he can hopefully return back to his prior living situation. Prognosis is reasonably good. Estimated length of stay probably at least 10 days to 2 weeks. Potential barriers would include his multiple medical comorbidities and decreased functional status. The patient meets diagnostic criteria for an acute in-hospital inpatient rehabilitation stay. He meets medical necessity criteria. We will have the [address] [address] HISTORY AND PHYSICAL Name: KIMBERLI SAIIN Room #: 514-P [facility] IN ..#: [id number] Admission: 10/06/19 Attend Phys: Patrick Gonzalez MD Discharge: Date of : 34 Report #: [id number] actuarial consultant physicians continue to follow. He does have the tolerance for therapies and has appropriate discharge goals back to the home setting. <ELECTRONICALLY SIGNED> By: Patrick Gonzalez MD 10/17/19 1536 [id number] 1427 Patrick Gonzalez MD /[facility]
--- NOTE | 2019-10-17 15:38 | PLAN ---
[facility] [place] [address] REHAB UNIT PLAN OF CARE Name: KIMBERLI SAINI Room #: 514-P ADM IN M.R.#: [id number] Admission: 10/06/19 Attend Phys: Patrick Gonzalez MD Discharge: Date of : 34 Report #: [id number] THIS REPORT FOR: //name// CC: Patrick Johnson DATE OF SERVICE: 10/09/2019 PROGRESS NOTE/OVERALL PLAN OF CARE SUBJECTIVE: The patient is seen back today in followup. He is in no distress. Last recorded temperature 97.9, pulse 61, respirations 18, blood pressure 130/76. The patient is alert. HEENT appeared to be benign. Cranial nerves are grossly intact. Facies are symmetric. Transfers are contact guard assistance. Gait min assist 250 feet front-wheeled walker. Lower body dressing is min assist and upper body dressing, standby assistance. He has [id number] comprehensive deficits. ASSESSMENT: 1. Gait instability with recurrent falls. 2. Orthostatic hypotension. Discussed with nursing staff and hospitalist nurse practitioner regarding obtaining bilateral thigh high CHRIS hose. He has had some dizziness with this. 3. Normal pressure hydrocephalus. 4. History of recurrent falls. 5. Recent T12 vertebral fracture. PLAN: The overall plan of care is based on the preadmission screen, post-admission physician evaluation, and information garnered from therapy assessments. 1. Estimated length of stay is probably at least 10 days to 2 weeks. 2. Medical prognosis is reasonably good. 3. Anticipated interventions includes the interdisciplinary acute inpatient rehabilitation program. 4. Anticipated functional outcomes would be for the patient to be modified independent with transfers and gait to improve as far as overall ADL independence as well as cognition. 5. Discharge destination would be back to the home setting where he lives with his . 6. Expected therapy by discipline includes PT, OT and speech 1 hour per day each 5 days a week throughout the duration of the acute inpatient rehabilitation [address] [address] REHAB UNIT PLAN OF CARE Name: KIMBERLI SAINI Room #: 514-P [facility] IN .R.#: [id number] Admission: 10/06/19 Attend Phys: Patrick Gonzalez MD Discharge: Date of : 34 Report #: [id number] stay. We may be able to decrease the speech therapy in favor of more PT and OT depending upon how he does. <ELECTRONICALLY SIGNED> By: Patrick Gonzalez MD 10/17/19 1538 1007 1526 Patrick Gonzalez MD /[facility]
--- NOTE | 2019-10-17 15:41 | NUR ---
ASSUMED CARE AT 0700, PT ALERT AND ORIENTED TO PERSON, IMPULSIVE AND CONFUSED AT TIMES. VSS O2 ON RA. PT DENIES ANY PAIN OR DISCOMFORT. STAND BY ASSIST X 1 USING GAITBELT AND WALKER. MEDS GIVEN PER ORDERS. SITTING IN RECLINER, CALL LIGHT WITHIN REACH, WILL CONTINUE TO MONITOR PER POC.
[2019-10-17 19:00] VITALS: BP 120/65
--- NOTE | 2019-10-17 23:19 | NUR ---
PT ASSESSMENT COMPLETED AND VSS. MEDS GIVEN ORDERED AND WELL TOLERATED. FALL PRECAUTIONS IN PLACE. UP TO THE BATHROOM WITH ASST/GAIT/WALKER. PT REMAINS PLEASANTLY CONFUSED. SLEEPING MEDICATION WORKING WELL AT THIS TIME. WILL CONTINUE TO MONITOR FREQUENTLY.
[2019-10-18 08:10] VITALS: BP 143/67
--- NOTE | 2019-10-18 13:24 | NUR ---
ASSUMED CARES AT 0700. PT AWAKE, ORIENTED TO PERSON AND PLACE. FORGETFUL. DENIES PAIN. VITALS REMAIN STABLE. PT DENIES DIZZINES. THIGH HIGH CHRIS HOSE IN PLACE. PT UP WITH 1 MIN ASSIST, GB AND WALKER AND TOLERATED WELL. EXCITED ABOUT DC TOMORROW. FREQ. VISUAL CHECKS. CALL LIGHT WITHIN REACH. FALL PRECAUTIONS IN PLACE
--- NOTE | 2019-10-18 14:25 | NUR ---
son charo called back " will use [facility] for [facility] and could you call and let her know how and where to pick him up at "/charo. referral to be sent to [facility] and cm called mak dc instruction on where to park provided and hh set up. " ok i will be in by car by b building at 1300 and someone will bring him to me?"/. re-education that is correct and any question to call prior to dc home tomorrow.
[2019-10-18 14:32] VITALS: BP 143/67
--- NOTE | 2019-10-18 14:36 | NUR ---
FAXED REFERRAL TO [facility] SPOKE WITH MAYELIN IN INTAKE SHE RECEIVED REFERRAL AND CAN ACCEPT. PT TO DC TOMORROW 10/18 AND THEY WILL HAVE SOMEONE FROM [facility] HH TO SEE PT FRI/SAT MORNING THEY WILL NOTIFY PT TIME OF VISITS.
[2019-10-18 19:00] VITALS: BP 119/51
--- NOTE | 2019-10-19 01:34 | NUR ---
PT ASSESSMENT DONE AND VSS. MED GIVEN AND WELL TOLERATED. FALL PRECAUTIONS IN PLACE. PT UP TO THE BR WITH ASSIST, GB AND WALKER X 2. HE WANTED TO KNOW IF WE HAD A BED FOR HIM TO SLEEP IN LATER. POINTED OUT THE BED IN HIS ROOM. HE WANTED TO WAIT TO TAKE HIS SLEEP MED UNTIL 10:30 SO HE COULD WATCH TV THAT IS HIS USUAL TIME TO GO TO BED AT HOME. GAVE CUES OFTEN TO STAND UP STRAIGHT AFTER HE SLEPT FOR A COUPLE OF HOURS AND NEEDED TO URINATE. HE WAS BENDING OVER AND SQUATTING DOWN. ASSISTED BACK TO BED. CALL LIGHT IN REACH. WILL CONTINUE TO MONITOR.
[2019-10-19 08:00] VITALS: BP 113/55
--- NOTE | 2019-10-19 08:56 | NUR ---
ASSUMED CARES AT 0700. PT AWAKE, ORIENTED TO PERSON AND PLACE. EXCITED TO DC TO HOME TODAY, STATED THAT HIS WILL BE PICKING HIM UP. DENIES PAIN. VITALS REMAIN STABLE. THIGH HIGH CHRIS HOSE IN PLACE. PT UP WITH 1 MIN ASSIST, GB AND WALKER. TENDS TO LEAN FORWARD AND DRAG HIS RLE, ENCOURAGED TO STAND UPRIGHT AND LIFT HIS RIGHT LEG WHEN AMBULATING. PT TO DC TODAY AFTERNOON WITH AND HH. REPORT TO BE GIVEN TO DURING DC. CALL LIGHT WITHIN REACH. FREQ. VISUAL CHECKS. FALL PRECAUTIONS IN PLACE
[2019-10-19] MEDS ORDERED: COLESTIPOL HCL1 G1 PO ×2 (09:23→09:28)
[2019-10-19] MEDS ORDERED: MIRALAX17 GM PO (09:23)
[2019-10-19] MEDS ORDERED: ASPIRIN EC81 M1 PO (09:27)
[2019-10-19] MEDS ORDERED: TAMSULOSIN HCL0.4 MG PO (09:27)
[2019-10-19] MEDS ORDERED: MELATONIN5 M1 PO (09:28)
[2019-10-19 11:46] VITALS: BP 143/67
--- NOTE | 2019-10-19 13:14 | NUR ---
PT DISCHARGING TODAY TO HOME WITH [facility] FAXED DC ORDERS/SUMMARY SPOKE WITH MAYELIN IN INTAKE SHE RECEIVED ORDERS AND WILL NOTIFY PT TIME OF VISITS.
== END 2019-10-19 14:12 | disposition home health service (06) | DRG 91 ==
PROVIDERS: Internal Medicine; Nurse Practitioner Family; ADMIT Physical Medicine & Rehabilitation
DX: R26.9 Unspecified abnormalities of gait and mobility (principal); G93.41 Metabolic encephalopathy; G91.2 (Idiopathic) normal pressure hydrocephalus; R53.81 Other malaise; I95.1 Orthostatic hypotension; I10 Essential (primary) hypertension; G56.00 Carpal tunnel syndrome, unspecified upper limb; R42 Dizziness and giddiness; F03.90 Unspecified dementia, unspecified severity, without behavioral disturbance, psychotic disturbance, mood disturbance, and anxiety; R29.6 Repeated falls; N40.0 Benign prostatic hyperplasia without lower urinary tract symptoms; Z66 Do not resuscitate; F41.9 Anxiety disorder, unspecified; G47.00 Insomnia, unspecified; Z90.49 Acquired absence of other specified parts of digestive tract; Z85.038 Personal history of other malignant neoplasm of large intestine; Z91.81 History of falling
CPT/HCPCS: 10112

== ENCOUNTER → 2019-11-22 | Outpatient (CLI) | payer OTHER, MEDICARE ==
[~2019-11-22] MED LIST changes: +MELATONIN5 M1 PO; +MIRALAX17 GM PO
== END ==
LOC: SJCVC 14:23
DX: R94.31 Abnormal electrocardiogram [ECG] [EKG] (principal); I45.2 Bifascicular block; R00.1 Bradycardia, unspecified; I95.1 Orthostatic hypotension; G91.2 (Idiopathic) normal pressure hydrocephalus; I10 Essential (primary) hypertension; E78.5 Hyperlipidemia, unspecified

== ENCOUNTER 2020-08-18 00:14 | Inpatient (IN) | payer OTHER, MEDICARE ==
[~2020-08-18] VITALS: Ht 177.8 cm; Wt 79.8 kg
[2020-08-18 00:15] VITALS: BP 140/77
[2020-08-18] MEDS ORDERED: FINASTERIDE5 MG PO (01:16)
[2020-08-18] MEDS ORDERED: TRAMADOL 50 MG50 MG PO (01:17)
[2020-08-18] MEDS ORDERED: ASA81BEC PO (01:17)
[2020-08-18 04:44] LABS: ABSOLUTE NEUTROPHILS 7.4 thou/uL (1.4-8.2); BASOPHILS 0.3 % (0.0-2.0); EOSINOPHILS 1.8 % (0.0-3.0); HEMATOCRIT 40.6 % (42.0-52.0); HEMOGLOBIN 13.8 gm/dL (14.0-18.0); LYMPHOCYTES 15.5 % (24.0-44.0); MCH 33.3 pg (26.0-34.0); MCHC 34.1 g/dL (28.0-37.0); MCV 97.5 fL (80.0-100.0); MONOCYTES 7.8 % (1.0-8.0); PLATELET COUNT 209 thou/uL (150-400); POLYS 74.6 % (36.0-66.0); RBC 4.16 mil/uL (4.50-6.00)
[2020-08-18 04:48] LABS: CALCIUM 8.8 mg/dL (8.5-10.1); POTASSIUM 3.8 mmol/L (3.5-5.1)
[2020-08-18 06:39] VITALS: BP 168/65
[2020-08-18 07:39] VITALS: BP 149/104
[2020-08-18 08:05] VITALS: BP 167/65
--- NOTE | 2020-08-18 09:16 | NUR ---
PTS DAUGHTER CALLED AND REQUESTED TO TALK TO THE ARMATURE INSPECTOR FOR HER FATHER, SHE WAS TRANSFERRED FROM THE ED NUMBER TO 4S TO TALK TO THEIR NURSE.
--- NOTE | 2020-08-18 10:20 | EKG ---
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
--- NOTE | 2020-08-18 13:30 | NUR ---
PT ADMITTED TO 4S, ROOM 437 THIS MORNING. VITALS AND ASSESSMENT STABLE. PT ADMISSION COMPLTED. PT IS ALERT AND ORIENTED X4, DENIES NAUSEA AND VOMITTING. COMPLAINS OF PAIN WITH ACTIVITY, OTHERWISE HE IS OKAY. UP WITH ONE ASSIST, UNSTEADY ON HIS FEET. PT HAD 100ML URINE OUTPUT. BLADDER SCAN PT, PT BLADER WAS EMPTY. FALL PRECAUTIONS IN PLACVE, PT CALL APPROPRIATELY.
[2020-08-18 16:57] VITALS: BP 143/67
--- NOTE | 2020-08-18 17:57 | NUR ---
PT COMPLAINS ABOUT FEELING DIZZY, VITALS SIGNS STABLE, BP 167/78, HR 75, 98%, RR 18, 98.2. PT STATED, HE NORMALLY HAVE DIZZINESS AT HOME AND ITS NO CONCERN. AFTER STAYING WITH PT FOR 10MINS, STATED HE FEEL BETTER.
[2020-08-18 19:55] VITALS: BP 168/64
[2020-08-19 04:43] VITALS: BP 131/55
--- NOTE | 2020-08-19 04:53 | NUR ---
PT LYING IN BED. VOIDING PER URINAL. LORTAB PROVIDING PAIN RELIEF. REMAINS IMPULSIVE. FREQUENT OBSERVATION.
[2020-08-19 07:46] VITALS: BP 158/80
[2020-08-19 09:41] VITALS: BP 158/80
--- NOTE | 2020-08-19 10:59 | NUR ---
ASSUMED PT CARE THIS AM. PT HAS NO COMPLAINTS OF PAIN. IV PATENT. MEDS TAKEN WITHOUT COMPLAINT THIS AM. PT ATTEMPTING TO GET OUT OF BED, BUT IS REDIRECTABLE. COMPLAINING OF SOME WEAKNESS. PT USING URINAL NEEDED. COMPLAINS OF SOME CHRONIC NUMBNESS IN THE RIGHT HAND. FALL PRECAUTIONS IN PLACE.
--- NOTE | 2020-08-19 11:02 | NUR ---
INITIAL ASSESSMENT/DISCHARGE NOTE: Received consult. EULOGIO reviewed chart and spoke with nursing. Pt was admitted from home after a fall. No surgical interventions indicated at this time. Discharge orders written for pt to discharge home today with HH services. EULOGIO met with pt at bedside. Introduced role of SW. Pt discussed need for HH. Pt is agreeable. Pt has used [facility] in the past. Pt was on 5N in September of 2019. Pt's PCP is Dr. Johnson. Pt states his family will be able to provide transportation home. EULOGIO faxed referral and discharge orders/summary to [facility] and spoke with Lashaun in intake. Confirmed info was received. Contact info for [facility] placed in pt's discharge summary. Nursing to contact pt's family when ready for discharge. No additional SW needs identified at this time, but is available to assist should needs arise.
== END 2020-08-19 14:30 | disposition home health service (06) | DRG 184 ==
LOC: ER 00:14 → EDBD 00:14 → 4S 04:03 → EROBS 04:03 → 4S 07:52 → EDBD 08-19 14:30
PROVIDERS: Emergency Medicine; ADMIT Surgery; ATTEND Surgery
DX: S22.42XA Multiple fractures of ribs, left side, initial encounter for closed fracture (principal); S32.018A Other fracture of first lumbar vertebra, initial encounter for closed fracture; S32.028A Other fracture of second lumbar vertebra, initial encounter for closed fracture; I10 Essential (primary) hypertension; I95.1 Orthostatic hypotension; N40.0 Benign prostatic hyperplasia without lower urinary tract symptoms; G47.00 Insomnia, unspecified; W18.39XA Other fall on same level, initial encounter; Y93.01 Activity, walking, marching and hiking; Y92.89 Other specified places as the place of occurrence of the external cause; Z85.038 Personal history of other malignant neoplasm of large intestine; Z90.49 Acquired absence of other specified parts of digestive tract; Z79.899 Other long term (current) drug therapy; Y99.8 Other external cause status
CPT/HCPCS: 10195

== ENCOUNTER 2020-08-19 19:11 | Emergency (ER) | payer OTHER, MEDICARE ==
[~2020-08-19] VITALS: Ht 177.8 cm; Wt 78.0 kg
[~2020-08-19 19:11] MED LIST changes: +ASA81BEC PO; +FINASTERIDE5 MG PO
[2020-08-19 19:14] VITALS: BP 147/48
[2020-08-20] VITALS: BP 142/75
== END 2020-08-20 00:02 | disposition short-term general hospital (02) ==
LOC: EDBD 19:11 → ER 19:11 → EROBS 20:19 → ER 08-20 00:02
DX: S22.42XA Multiple fractures of ribs, left side, initial encounter for closed fracture (principal); S32.018A Other fracture of first lumbar vertebra, initial encounter for closed fracture; S32.028A Other fracture of second lumbar vertebra, initial encounter for closed fracture; I10 Essential (primary) hypertension; Z79.899 Other long term (current) drug therapy; Z79.82 Long term (current) use of aspirin; Z90.49 Acquired absence of other specified parts of digestive tract; Z98.890 Other specified postprocedural states; Z85.038 Personal history of other malignant neoplasm of large intestine; W18.30XA Fall on same level, unspecified, initial encounter; Y93.89 Activity, other specified; Y92.89 Other specified places as the place of occurrence of the external cause; Y99.9 Unspecified external cause status

== ENCOUNTER 2021-08-15 05:02 | Emergency (ER) | payer OTHER, MEDICARE ==
[~2021-08-15] VITALS: Ht 182.9 cm; Wt 81.7 kg
--- NOTE | ~2021-08-15 | EMS ---
[facility] [address] [place] [address] EMS Patient Care Report Name: KIMBERLI SAINI Room #: DEP SAIDA Villagomez#: [id number] Admission: 08/15/21 Attend Phys: Discharge: 08/15/21 Date of : 34 Report #: [id number] THIS REPORT FOR: //name// Report Transmitted: 08/18/2021 14:29 EMS Care Summary [place], [place]/[facility] Incident [id number] @ 08/15/2021 04:28 Incident Location [address] [place] [address] Patient KIMBERLI SAINI Male, 86 Years 1935 Patient Address [address] [place] [address] Patient History Cardiac Arrythmia,Dementia,Hypertension (HTN),Parkinson's Disease,Gastro-Esophageal Reflux Disease (GERD),Osteoarthritis,Hypotension,Enlarged prostate,Insomnia, Patient Allergies No known allergies, Patient Medications Famotidine, Sinemet, Tramadol, Melatonin, Cyanocobalamin Co57, Finasteride, Oxybutynin, ASA, Chief Complaint Left shoulder, hip and knee pain Disposition Transported No Lights/[place] Dispatch Reason Falls Transported To [facility] [address] [place] [address] EMS Patient Care Report Name: KIMBERLI SAINI Room #: DEP Dahlia#: [id number] Admission: 08/15/21 Attend Phys: Discharge: 08/15/21 Date of : 34 Report #: [id number] Called to the scene for a fall. Upon arrival, pt was PIERCE x 3 sitting on a commode c/o left shoulder, hip and knee pain. It was reported he fell getting out of bed and possibly his left leg just gave out. He is ambulatory with a walker. No loss of consciousness, striking of his head or blood thinners reported. Pt requested transport to the ER for further evaluation and treatment. He was assisted to the EMS cot and loaded into the ambulance w/o incident. Vitals obtained x 2. En route: no significant changes. RR to the ER. Arrived: pt taken to ER #6 and moved to their bed w/o incident. Pt care & report to ER staff. Initial Vitals @04:52P: 58,R: 16,BP: 156/76,Pain: 2/10,CO: 1,SpO2: 95, @04:47P: 67,R: 16,BP: 163/76,Pain: 2/10,GCS: 15,CO: 2,SpO2: 96,Revised Trauma: 12, Assessments @04:37MENTAL:Time Oriented,Event Oriented,Place Oriented,Person Oriented,SKIN:HEENT:LUNG SOUNDS:ABDOMEN:PELVIS//GI:EXTREMITIES:Left Leg: LISA,Left Leg: LISA,Left Leg: Other,Left Arm: Other,Right Arm: No Abnormalities,Right Leg: No Abnormalities,PULSE:Radial: 2+ Normal,NEURO:No Abnormalities, Impression Injury of Shoulder or Upper Arm Procedures @04:37 ALS Assessment Response: UnchangedSucceeded @04:42 Stretcher Response: Unchanged Timeline 04:26,Call Received 04:26,Dispatch Notified 04:28,Dispatched 04:30,En Route 04:35,On Scene 04:37,At Patient 04:37,ALS Assessment,Response: UnchangedSucceeded, 04:42,Stretcher,Response: Unchanged 04:47,BP: 163/76 M,PULSE: 67,RR: 16 R,SPO2: 96 Ox,ETCO2: ,BG: ,PAIN: 2,GCS: 15, 04:49,Depart Scene 04:52,BP: 156/76 M,PULSE: 58,RR: 16 R,SPO2: 95 Ox,ETCO2: ,BG: ,PAIN: 2,GCS: , 05:14,At Destination 05:19,Call Closed Disclaimer [address] [address] EMS Patient Care Report Name: KIMBERLI SAINI Room #: DEP Dahlia#: [id number] Admission: 08/15/21 Attend Phys: Discharge: 08/15/21 Date of : 34 Report #: [id number] v1.1 Copyright 2021 [employer] This EMS Care Summary contains data elements from the applicable legal record (which may be displayed differently). It is designed to provide pertinent information for the following purposes: continuity of care, clinical quality, and state data reporting. The complete legal record is available to ED staff and administrators of the receiving hospital in [employer]'s Patient Tracker. All data is provided "as is."
--- NOTE | ~2021-08-15 | EMS ---
[facility] [address] [place] [address] EMS Patient Care Report Name: KIMBERLI SAINI Room #: REG SAIDA Villagomez#: [id number] Admission: 08/15/21 Attend Phys: Discharge: Date of : 34 Report #: [id number] THIS REPORT FOR: //name// Report Transmitted: 08/15/2021 05:09 EMS Care Summary [place], [place]/[facility] Incident [id number] @ 08/15/2021 04:28 Incident Location [address] [facility] 441 Patient KIMBERLI SAINI Male, 86 Years 1935 Patient Address [address] [facility] [address] [place] [address] Patient History Cardiac Arrythmia,Dementia,Hypertension (HTN),Parkinson's Disease,Gastro-Esophageal Reflux Disease (GERD),Osteoarthritis,Hypotension,Enlarged prostate,Insomnia, Patient Allergies No known allergies, Patient Medications Famotidine, Sinemet, Tramadol, Melatonin, Cyanocobalamin Co57, Finasteride, Oxybutynin, ASA, Chief Complaint Left shoulder, hip and knee pain Disposition Transported No Lights/[place] Dispatch Reason Falls Transported To [facility] [address] [place] [address] EMS Patient Care Report Name: KIMBERLI SAINI Room #: REG Dahlia#: [id number] Admission: 08/15/21 Attend Phys: Discharge: Date of : 34 Report #: [id number] Called to the scene for a fall. Upon arrival, pt was PIERCE x 3 sitting on a commode c/o left shoulder, hip and knee pain. It was reported he fell getting out of bed and possibly his left leg just gave out. He is ambulatory with a walker. No loss of consciousness, striking of his head or blood thinners reported. Pt requested transport to the ER for further evaluation and treatment. He was assisted to the EMS cot and loaded into the ambulance w/o incident. Vitals obtained x 2. En route: no significant changes. RR to the ER. Arrived: pt taken to ER #6 and moved to their bed w/o incident. Pt care & report to ER staff. Initial Vitals @04:52P: 58,R: 16,BP: 156/76,Pain: 2/10,CO: 1,SpO2: 95, @04:47P: 67,R: 16,BP: 163/76,Pain: 2/10,GCS: 15,CO: 2,SpO2: 96,Revised Trauma: 12, Assessments @04:37MENTAL:Person Oriented,Place Oriented,Event Oriented,Time Oriented,SKIN:HEENT:LUNG SOUNDS:ABDOMEN:PELVIS//GI:EXTREMITIES:Left Arm: Other,Left Leg: Other,Left Leg: LISA,Left Leg: LISA,Right Arm: No Abnormalities,Right Leg: No Abnormalities,PULSE:Radial: 2+ Normal,NEURO:No Abnormalities, Impression Injury of Shoulder or Upper Arm Procedures @04:37 ALS Assessment Response: UnchangedSucceeded @04:42 Stretcher Response: Unchanged Timeline 04:26,Call Received 04:26,Dispatch Notified 04:28,Dispatched 04:30,En Route 04:35,On Scene 04:37,At Patient 04:37,ALS Assessment,Response: UnchangedSucceeded, 04:42,Stretcher,Response: Unchanged 04:47,BP: 163/76 M,PULSE: 67,RR: 16 R,SPO2: 96 Ox,ETCO2: ,BG: ,PAIN: 2,GCS: 15, 04:49,Depart Scene 04:52,BP: 156/76 M,PULSE: 58,RR: 16 R,SPO2: 95 Ox,ETCO2: ,BG: ,PAIN: 2,GCS: , 05:14,At Destination 05:19,Call Closed Disclaimer [address] [address] EMS Patient Care Report Name: YENYKIMBERLI LINDA Room #: REG [facility]#: [id number] Admission: 08/15/21 Attend Phys: Discharge: Date of : 34 Report #: [id number] v1.1 Copyright 2021 [employer] This EMS Care Summary contains data elements from the applicable legal record (which may be displayed differently). It is designed to provide pertinent information for the following purposes: continuity of care, clinical quality, and state data reporting. The complete legal record is available to ED staff and administrators of the receiving hospital in [employer]'s Patient Tracker. All data is provided "as is."
[2021-08-15] MEDS ORDERED: OXYBUTYNIN 5 MG5 M2 PO (06:01)
[2021-08-15] MEDS ORDERED: SINEMET 25-1001 EAC1 PO (06:02)
[2021-08-15] MEDS ORDERED: PEPCID40 MG PO (06:04)
[2021-08-15] MEDS ORDERED: VITAMIN C500 M2 PO (06:05)
[2021-08-15 06:53] LABS: URINE BILIRUBIN NEGATIVE (Negative); URINE BLOOD NEGATIVE (Negative); URINE CLARITY CLEAR; URINE COLOR YELLOW; URINE GLUCOSE-RANDOM* NEGATIVE (Negative); URINE KETONES NEGATIVE (Negative); URINE LEUKOCYTES-REFLEX NEGATIVE (Negative); URINE NITRITE-REFLEX NEGATIVE (Negative); URINE PROTEIN (DIPSTICK) NEGATIVE (Negative); URINE UROBILINOGEN 0.2 E.U./dl (0.2-1.0)
[2021-08-15 07:30] VITALS: BP 117/68
== END 2021-08-15 07:30 | disposition home or self-care (01) ==
LOC: ER 05:02
PROVIDERS: Emergency Medicine
DX: S70.02XA Contusion of left hip, initial encounter (principal); S70.12XA Contusion of left thigh, initial encounter; S16.1XXA Strain of muscle, fascia and tendon at neck level, initial encounter; S09.90XA Unspecified injury of head, initial encounter; I10 Essential (primary) hypertension; Z85.038 Personal history of other malignant neoplasm of large intestine; Z90.49 Acquired absence of other specified parts of digestive tract; Z79.82 Long term (current) use of aspirin; Z79.891 Long term (current) use of opiate analgesic; Z79.899 Other long term (current) drug therapy; W18.39XA Other fall on same level, initial encounter; Y93.89 Activity, other specified; Y92.89 Other specified places as the place of occurrence of the external cause; Y99.8 Other external cause status